=== PATIENT | female | born 1980 | race Hispanic/Latino ===

== ENCOUNTER 2016-10-20 13:50 | Emergency (ER) | payer SELFPAY ==
--- NOTE | 2016-10-20 15:14 | Emergency Department Report ---
Chief Complaint: Psych Stated Complaint: NEEDS HELP WITH DRUG ADDICTION Time Seen by Provider: 10/20/16 15:10 - HPI History of Present Illness: PT states she came to the ED to get treatment for methamphetamine abuse. PT states she has been using heavily for 1 year. - ROS Review of Systems: + bodyaches + nausea - vomiting - Exam Physical Exam: pt looks older than stated age, non toxic pt is alert and appropriate in triage. MSE screening note: Focused history and physical exam performed. Due to findings the following was ordered: labs ED Disposition for MSE Condition: Stable
[2016-10-20 15:51] LABS: Basophils % (Auto) 0.7 % (0.0-1.8); Eosinophils % (Auto) 2.4 % (0.0-4.3); Hematocrit 39.2 % (30.3-42.9); Hemoglobin 12.7 gm/dl (10.1-14.3); Mean Corpuscular HGB Conc 33 % (30-34); Mean Corpuscular Volume 75 fl (79-97); Platelet Count 299 K/mm3 (140-440); Red Cell Distribution Width 16.5 % (13.2-15.2); White Blood Count 11.2 K/mm3 (4.5-11.0)
[2016-10-20 16:02] LABS: Mean Corpuscular Hemoglobin 25 pg (28-32)
[2016-10-20 16:09] LABS: Alanine Aminotransferase 14 units/L (7-56); Albumin 4.1 g/dL (3.9-5); Albumin/Globulin Ratio 1.6 %; Alkaline Phosphatase 64 units/L (35-129); Anion Gap 16 mmol/L; Blood Urea Nitrogen 10 mg/dL (7-17); Calcium 9.2 mg/dL (8.4-10.2); Carbon Dioxide 23 mmol/L (22-30); Glucose 79 mg/dL (65-100); Potassium 4.4 mmol/L (3.6-5.0); Sodium 136 mmol/L (137-145); Total Protein 6.7 g/dL (6.3-8.2)
[2016-10-20 16:17] LABS: Urine Drugs of Abuse Note Disclamer
[2016-10-20 16:28] LABS: Bilirubin,Urine NEG (Negative); Blood,Urine NEG (Negative); Ketones,Urine NEG (Negative); Leukocyte Esterase,Urine SM (Negative); Mucus,Urine FEW /HPF; Nitrite,Urine NEG (Negative); Protein,Urine <15 mg/dL mg/dL (Negative); Urobilinogen,Urine < 2.0 mg/dL (<2.0)
[2016-10-20 17:49] VITALS: BP 122/74
[2016-10-20] MEDS ORDERED: NACL 0.9% 1000 ML 1,000 ML ONE (18:04)
[2016-10-20] MEDS ORDERED: NACL 0.9% 1000 ML 1,000 ML IV ONE (18:11)
[2016-10-20] MEDS ORDERED: ATIVAN IV ONE (19:02)
[2016-10-20] MEDS ORDERED: ZOFRAN IV ONE (19:02)
--- NOTE | 2016-10-20 19:20 | Emergency Department Report ---
ED Psych HPI - General Chief Complaint: Psych Stated Complaint: NEEDS HELP WITH DRUG ADDICTION Time Seen by Provider: 10/20/16 15:10 Source: patient Mode of arrival: Ambulatory - History of Present Illness Initial Comments: 35-year-old female with a past medical history of methamphetamine abuse presents to the hospital requesting detox for methamphetamine. Last used this a.m. Patient complains of generalized body aches and states she is anxious and irritable. Generalized body aches is constant, moderate without aggravating alleviating factors. Positive nausea without vomiting. No reports of suicidal homicidal ideation. - Related Data Previous Rx's Medication Instructions Recorded Last Taken Type HYDROcodone/APAP 5-325 [[place] 1 each PO Q6HR PRN #14 tablet 08/16/13 Unknown Rx 5-325 mg TAB] Penicillin Vk [Veetids TAB] 2 tab PO BID #40 tablet 08/16/13 Unknown Rx Ibuprofen [Motrin] 600 mg PO Q8H PRN #30 tablet 10/20/16 Unknown Rx Ondansetron [Zofran Odt] 4 mg PO Q8HR PRN #20 tab.rapdis 10/20/16 Unknown Rx Allergies Allergy/AdvReac Type Severity Reaction Status Date / Time codeine Allergy Unknown Verified 08/16/13 07:46 ED Review of Systems ROS: Stated complaint: NEEDS HELP WITH DRUG ADDICTION Other details as noted in HPI Comment: All other systems reviewed and negative Other: Constitutional: No fevers chills Eyes: No eye pain visual changes ENT: No ear pain or throat pain Neck: Denies pain Respiratory: Denies cough wheezing shortness of breath Cardiovascular: Denies chest pain, palpitations, syncope GI: Denies abdominal pain, diarrhea : Denies dysuria Musculoskeletal: Generalized Skin: Denies rash, lesions, erythema Neurologic: Denies headache, numbness, weakness Psychiatric: Denies suicidal ideation, hallucinations ED Past Medical Hx - Past Medical History Previous Medical History?: Yes Additional medical history: abuse of drugs, Abuse of Methamphetamines - Surgical History Past Surgical History?: Yes Additional Surgical History: Eye surgery when was a child - Social History Smoking Status: Current Every Day Smoker Substance Use Type: Alcohol, Marijuana, Methamphetamines - Medications Home Medications: Home Medications Medication Instructions Recorded Confirmed Last Taken Type HYDROcodone/APAP 5-325 [[place] 1 each PO Q6HR PRN #14 tablet 04/09/14 Unknown Rx 5-325 mg TAB] Penicillin Vk [Veetids TAB] 2 tab PO BID #40 tablet 08/16/13 Unknown Rx Ibuprofen [Motrin] 600 mg PO Q8H PRN #30 tablet 10/20/16 Unknown Rx Ondansetron [Zofran Odt] 4 mg PO Q8HR PRN #20 tab.rapdis 10/20/16 Unknown Rx ED Physical Exam - General Limitations: No Limitations - Other Other exam information: General: No limitations Head exam: Atraumatic, normocephalic Eyes exam: Normal appearance ENT: Moist mucous membrane, normal oropharynx Neck exam: Normal inspection, full range of motion Respiratory exam: Clear to auscultation bilateral, no wheezes, rales, crackles Cardiovascular: Normal rate and rhythm, normal heart sounds Abdomen: Soft, nondistended, and nontender, with normal bowel sounds, no rebound, or guarding Extremity: Full range of motion normal inspection no deformity Back: Normal Inspection, full range of motion, no tenderness Neurologic: Alert, oriented x3, cranial nerves intact, no motor or sensory deficit Psychiatric: normal affect, normal mood Skin: Warm, dry, intact ED Course Vital Signs 10/20/16 10/20/16 10/20/16 15:10 17:49 18:10 Temperature 98.3 F Pulse Rate 103 H 105 H Respiratory 22 16 16 Rate Blood Pressure 126/83 Blood Pressure 122/74 [Right] O2 Sat by Pulse 100 100 100 Oximetry - Reevaluation(s) Reevaluation #1: 10/20/16 Patient received 1 L normal saline during ED stay with improvement in heart rate. Ativan, Zofran, Toradol also provided prior to discharge ED Medical Decision Making - Lab Data Result diagrams: 10/20/16 15:30 10/20/16 15:30 Lab Results 10/20/16 10/20/16 10/20/16 Range/Units 15:30 15:30 15:30 WBC 11.2 H (4.5-11.0) K/mm3 RBC 5.20 H (3.65-5.03) M/mm3 Hgb 12.7 (10.1-14.3) gm/dl Hct 39.2 (30.3-42.9) % MCV 75 L (79-97) fl MCH 25 L (28-32) pg MCHC 33 (30-34) % RDW 16.5 H (13.2-15.2) % Plt Count 299 (140-440) K/mm3 Lymph % (Auto) 28.7 (13.4-35.0) % [place] % (Auto) 8.4 H (0.0-7.3) % Eos % (Auto) 2.4 (0.0-4.3) % Baso % (Auto) 0.7 (0.0-1.8) % Lymph # 3.2 (1.2-5.4) K/mm3 [place]yler # 0.9 H (0.0-0.8) K/mm3 Eos # 0.3 (0.0-0.4) K/mm3 Baso # 0.1 (0.0-0.1) K/mm3 Seg Neutrophils % 59.8 (40.0-70.0) % Seg Neutrophils # 6.7 (1.8-7.7) K/mm3 Sodium 136 L (137-145) mmol/L Potassium 4.4 (3.6-5.0) mmol/L Chloride 101.0 (98-107) mmol/L Carbon Dioxide 23 (22-30) mmol/L Anion Gap 16 mmol/L BUN 10 (7-17) mg/dL Creatinine 0.5 L (0.7-1.2) mg/dL Estimated GFR > 60 ml/min BUN/Creatinine Ratio 20.00 % Glucose 79 (65-100) mg/dL Calcium 9.2 (8.4-10.2) mg/dL Total Bilirubin 0.20 (0.1-1.2) mg/dL AST 15 (5-40) units/L ALT 14 (7-56) units/L Alkaline Phosphatase 64 (35-129) units/L Total Creatine Kinase (30-135) units/L Total Protein 6.7 (6.3-8.2) g/dL Albumin 4.1 (3.9-5) g/dL Albumin/Globulin Ratio 1.6 % HCG, Qual (Negative) Urine Color (Yellow) Urine Turbidity (Clear) Urine pH (5.0-7.0) Ur Specific [place] (1.003-1.030) Urine Protein (Negative) mg/dL Urine Glucose (UA) (Negative) mg/dL Urine Ketones (Negative) mg/dL Urine Blood (Negative) Urine Nitrite (Negative) Urine Bilirubin (Negative) Urine Urobilinogen (<2.0) mg/dL Ur Leukocyte Esterase (Negative) Urine WBC (Auto) (0.0-6.0) /HPF Urine RBC (Auto) (0.0-6.0) /HPF U Epithel Cells (Auto) (0-13.0) /HPF Urine Mucus /HPF Salicylates < 0.3 L (2.8-20.0) mg/dL Urine Opiates Screen Urine Methadone Screen Acetaminophen (10.0-30.0) ug/mL Ur Barbiturates Screen Ur Phencyclidine Scrn Ur Amphetamines Screen U Benzodiazepines Scrn Urine Cocaine Screen U Marijuana (THC) Screen Drugs of Abuse Note Plasma/Serum Alcohol (0-0.07) gm% 10/20/16 10/20/16 10/20/16 Range/Units 15:30 15:30 15:30 WBC (4.5-11.0) K/mm3 RBC (3.65-5.03) M/mm3 Hgb (10.1-14.3) gm/dl Hct (30.3-42.9) % MCV (79-97) fl MCH (28-32) pg MCHC (30-34) % RDW (13.2-15.2) % Plt Count (140-440) K/mm3 Lymph % (Auto) (13.4-35.0) % [place] % (Auto) (0.0-7.3) % Eos % (Auto) (0.0-4.3) % Baso % (Auto) (0.0-1.8) % Lymph # (1.2-5.4) K/mm3 [place] # (0.0-0.8) K/mm3 Eos # (0.0-0.4) K/mm3 Baso # (0.0-0.1) K/mm3 Seg Neutrophils % (40.0-70.0) % Seg Neutrophils # (1.8-7.7) K/mm3 Sodium (137-145) mmol/L Potassium (3.6-5.0) mmol/L Chloride (98-107) mmol/L Carbon Dioxide (22-30) mmol/L Anion Gap mmol/L BUN (7-17) mg/dL Creatinine (0.7-1.2) mg/dL Estimated GFR ml/min BUN/Creatinine Ratio % Glucose (65-100) mg/dL Calcium (8.4-10.2) mg/dL Total Bilirubin (0.1-1.2) mg/dL AST (5-40) units/L ALT (7-56) units/L Alkaline Phosphatase (35-129) units/L Total Creatine Kinase (30-135) units/L Total Protein (6.3-8.2) g/dL Albumin (3.9-5) g/dL Albumin/Globulin Ratio % HCG, Qual Negative (Negative) Urine Color (Yellow) Urine Turbidity (Clear) Urine pH (5.0-7.0) Ur Specific [place] (1.003-1.030) Urine Protein (Negative) mg/dL Urine Glucose (UA) (Negative) mg/dL Urine Ketones (Negative) mg/dL Urine Blood (Negative) Urine Nitrite (Negative) Urine Bilirubin (Negative) Urine Urobilinogen (<2.0) mg/dL Ur Leukocyte Esterase (Negative) Urine WBC (Auto) (0.0-6.0) /HPF Urine RBC (Auto) (0.0-6.0) /HPF U Epithel Cells (Auto) (0-13.0) /HPF Urine Mucus /HPF Salicylates (2.8-20.0) mg/dL Urine Opiates Screen Urine Methadone Screen Acetaminophen < 15.0 (10.0-30.0) ug/mL Ur Barbiturates Screen Ur Phencyclidine Scrn Ur Amphetamines Screen U Benzodiazepines Scrn Urine Cocaine Screen U Marijuana (THC) Screen Drugs of Abuse Note Plasma/Serum Alcohol < 0.01 (0-0.07) gm% 10/20/16 10/20/16 10/20/16 Range/Units 16:12 16:12 17:40 WBC (4.5-11.0) K/mm3 RBC (3.65-5.03) M/mm3 Hgb (10.1-14.3) gm/dl Hct (30.3-42.9) % MCV (79-97) fl MCH (28-32) pg MCHC (30-34) % RDW (13.2-15.2) % Plt Count (140-440) K/mm3 Lymph % (Auto) (13.4-35.0) % [place] % (Auto) (0.0-7.3) % Eos % (Auto) (0.0-4.3) % Baso % (Auto) (0.0-1.8) % Lymph # (1.2-5.4) K/mm3 [place] # (0.0-0.8) K/mm3 Eos # (0.0-0.4) K/mm3 Baso # (0.0-0.1) K/mm3 Seg Neutrophils % (40.0-70.0) % Seg Neutrophils # (1.8-7.7) K/mm3 Sodium (137-145) mmol/L Potassium (3.6-5.0) mmol/L Chloride (98-107) mmol/L Carbon Dioxide (22-30) mmol/L Anion Gap mmol/L BUN (7-17) mg/dL Creatinine (0.7-1.2) mg/dL Estimated GFR ml/min BUN/Creatinine Ratio % Glucose (65-100) mg/dL Calcium (8.4-10.2) mg/dL Total Bilirubin (0.1-1.2) mg/dL AST (5-40) units/L ALT (7-56) units/L Alkaline Phosphatase (35-129) units/L Total Creatine Kinase 94 (30-135) units/L Total Protein (6.3-8.2) g/dL Albumin (3.9-5) g/dL Albumin/Globulin Ratio % HCG, Qual (Negative) Urine Color Yellow (Yellow) Urine Turbidity Clear (Clear) Urine pH 5.0 (5.0-7.0) Ur Specific [place] 1.026 (1.003-1.030) Urine Protein <15 mg/dl (Negative) mg/dL Urine Glucose (UA) Neg (Negative) mg/dL Urine Ketones Neg (Negative) mg/dL Urine Blood Neg (Negative) Urine Nitrite Neg (Negative) Urine Bilirubin Neg (Negative) Urine Urobilinogen < 2.0 (<2.0) mg/dL Ur Leukocyte Esterase Sm (Negative) Urine WBC (Auto) 1.0 (0.0-6.0) /HPF Urine RBC (Auto) 4.0 (0.0-6.0) /HPF U Epithel Cells (Auto) < 1.0 (0-13.0) /HPF Urine Mucus Few /HPF Salicylates (2.8-20.0) mg/dL Urine Opiates Screen Presumptive negative Urine Methadone Screen Presumptive negative Acetaminophen (10.0-30.0) ug/mL Ur Barbiturates Screen Presumptive positive Ur Phencyclidine Scrn Presumptive negative Ur Amphetamines Screen Presumptive positive U Benzodiazepines Scrn Presumptive negative Urine Cocaine Screen Presumptive negative U Marijuana (THC) Screen Presumptive positive Drugs of Abuse Note Disclamer Plasma/Serum Alcohol (0-0.07) gm% - Medical Decision Making Patient's heart rate improved with 1 L normal saline. Patient provided 1 dose of Ativan and Zofran due to complaints of body aches, feeling anxious, and nausea. Mental health spoke to the patient to reiterate that we do not offer inpatient treatment for amphetamine abuse. Patient will be given outpatient resources and medication for nausea. - Differential Diagnosis substance abuse, rhabdomyolysis, amphetamine withdrawal, dehydration Critical care attestation.: If time is entered above; I have spent that time in minutes in the direct care of this critically ill patient, excluding procedure time. ED Disposition Clinical Impression: Amphetamine abuse Disposition: DC-01 TO HOME OR SELFCARE Is pt being admited?: No Does the pt Need Aspirin: No Condition: Stable Instructions: Methamphetamine Abuse (ED) Additional Instructions: Take medications for nausea and vomiting. Follow-up with the psychiatric center provided. Prescriptions: Ibuprofen [Motrin] 600 mg PO Q8H PRN #30 tablet PRN Reason: Pain Ondansetron [Zofran Odt] 4 mg PO Q8HR PRN #20 tab.rapdis PRN Reason: Nausea And Vomiting [facility] Days Forms: Accompanied Note Time of Disposition: 19:20
[2016-10-20] MEDS ORDERED: TORADOL IV ONE (19:22)
== END 2016-10-20 19:51 | disposition home or self-care (01) ==
LOC: ED 13:50
DX: F15.10 Other stimulant abuse, uncomplicated (principal); F17.200 Nicotine dependence, unspecified, uncomplicated; F12.90 Cannabis use, unspecified, uncomplicated; Z88.5 Allergy status to narcotic agent
CPT/HCPCS: 36415; 80053; 80307; 81001; 82550; 84703; 85025; 96361; 96374; 96375; 99283; G0480; J1885; J2060; J2405; J7030; 80320

== ENCOUNTER 2019-02-14 20:16 | Emergency (ER) | payer OTHER ==
[2019-02-14] MEDS ORDERED: ONDANSETRON 4 MG/2 ML INJ ONE (20:33)
[2019-02-14] MEDS ORDERED: MORPHINE 4 MG/1 ML INJ ONE (20:33)
[2019-02-14] MEDS ORDERED: BUPIVACAINE/PF (0.25%) 2.5 MG/ML 30 ML VIAL INFILTRATI ONE (21:00)
--- NOTE | 2019-02-14 21:20 | XRay Report ---
RIGHT WRIST 2 VIEWS INDICATION / CLINICAL INFORMATION: pain/injury. COMPARISON: None available. FINDINGS: Comminuted, very significantly displaced distal radial fracture. Signer Name: Mike Krishnamurthy MD Signed: 02/14/2019 9:16 PM Workstation Name: [id number]
[2019-02-14] MEDS ORDERED: SODIUM CHLORIDE 0.9% 1000 ML 1,000 ML IV ONE (21:30)
[2019-02-14] MEDS ORDERED: ONDANSETRON 4 MG/2 ML INJ IV ONE ×2 (21:30→23:01)
[2019-02-14] MEDS ORDERED: PROPOFOL 200 MG/20 ML VIAL IV ONE (21:30)
[2019-02-14] MEDS ORDERED: MORPHINE 4 MG/1 ML INJ IV ONE ×2 (21:35→23:01)
[2019-02-14 23:01] VITALS: BP 138/94
--- NOTE | 2019-02-14 23:11 | Emergency Department Report ---
ED General Adult HPI - General Chief complaint: Fall Stated complaint: RIGHT ARM PAIN Time Seen by Provider: 02/14/19 20:31 Source: patient, EMS Mode of arrival: Ambulatory Limitations: No Limitations - History of Present Illness Initial comments: Patient presents to the emergency department with a right wrist injury. Patient states she was walking with her dog and tripped over her dog landing onto her right wrist. Patient denies hitting her head or loss of consciousness -: Sudden Location: upper extremity Severity scale (0 -10): 5 Quality: sharp Consistency: constant Improves with: rest Worsens with: movement Associated Symptoms: denies other symptoms Treatments Prior to Arrival: none - Related Data Previous Rx's Medication Instructions Recorded Last Taken Type HYDROcodone/APAP 5-325 [[place] 1 each PO Q6HR PRN #14 tablet 08/16/13 Unknown Rx 5-325 mg TAB] Penicillin Vk [Veetids TAB] 2 tab PO BID #40 tablet 08/16/13 Unknown Rx Ibuprofen [Motrin] 600 mg PO Q8H PRN #30 tablet 10/20/16 Unknown Rx Ondansetron [Zofran Odt] 4 mg PO Q8HR PRN #20 tab.rapdis 10/20/16 Unknown Rx Ondansetron [Zofran Odt] 4 mg PO Q4HR PRN #20 tab.rapdis 02/14/19 Unknown Rx Allergies Allergy/AdvReac Type Severity Reaction Status Date / Time codeine Allergy Unknown Verified 08/16/13 07:46 ED Review of Systems ROS: Stated complaint: RIGHT ARM PAIN Other details as noted in HPI Constitutional: denies: chills, fever Eyes: denies: eye pain, eye discharge, vision change ENT: denies: ear pain, throat pain Respiratory: denies: cough, shortness of breath, wheezing Cardiovascular: denies: chest pain, palpitations Endocrine: no symptoms reported Gastrointestinal: denies: abdominal pain, nausea, diarrhea Genitourinary: denies: urgency, dysuria, discharge Musculoskeletal: denies: back pain, joint swelling, arthralgia Skin: denies: rash, lesions Neurological: denies: headache, weakness, paresthesias Psychiatric: denies: anxiety, depression Hematological/Lymphatic: denies: easy bleeding, easy bruising ED Past Medical Hx - Past Medical History Previous Medical History?: Yes Hx Hypertension: Yes Additional medical history: abuse of drugs, Abuse of Methamphetamines - Surgical History Additional Surgical History: Eye surgery when was a child - Social History Smoking Status: Current Every Day Smoker Substance Use Type: Alcohol - Medications Home Medications: Home Medications Medication Instructions Recorded Confirmed Last Taken Type HYDROcodone/APAP 5-325 [[place] 1 each PO Q6HR PRN #14 tablet 08/16/13 Unknown Rx 5-325 mg TAB] Penicillin Vk [Veetids TAB] 2 tab PO BID #40 tablet 08/16/13 Unknown Rx Ibuprofen [Motrin] 600 mg PO Q8H PRN #30 tablet 10/20/16 Unknown Rx Ondansetron [Zofran Odt] 4 mg PO Q8HR PRN #20 tab.rapdis 10/20/16 Unknown Rx Ondansetron [Zofran Odt] 4 mg PO Q4HR PRN #20 tab.rapdis 02/14/19 Unknown Rx ED Physical Exam - General Limitations: No Limitations General appearance: alert, in no apparent distress - Head Head exam: Present: atraumatic, normocephalic - Eye Eye exam: Present: normal appearance, PERRL, EOMI - ENT ENT exam: Present: mucous membranes moist - Neck Neck exam: Present: normal inspection - Respiratory Respiratory exam: Present: normal lung sounds bilaterally. Absent: respiratory distress - Cardiovascular Cardiovascular Exam: Present: regular rate, normal rhythm. Absent: systolic murmur, diastolic murmur, rubs, gallop - GI/Abdominal GI/Abdominal exam: Present: soft, normal bowel sounds - Extremities Exam Extremities exam: Present: other (deformity of the right wrist) - Back Exam Back exam: Present: normal inspection - Neurological Exam Neurological exam: Present: alert, oriented X3 - Psychiatric Psychiatric exam: Present: normal affect, normal mood - Skin Skin exam: Present: warm, dry, intact, normal color. Absent: rash ED Course Vital Signs 02/14/19 02/14/19 02/14/19 15:30 20:21 20:24 Temperature 98.2 F Temperature [ Intra-Procedure ] Temperature [ Post-Procedure] Temperature [ Pre-Procedure] Pulse Rate 109 H 95 H Pulse Rate [ Intra-Procedure ] Pulse Rate [ Post-Procedure] Pulse Rate [Pre -Procedure] Respiratory 17 22 Rate Respiratory Rate [Intra- Procedure] Respiratory Rate [Post- Procedure] Respiratory Rate [Pre- Procedure] Blood Pressure 120/59 120/59 120/59 Blood Pressure [Intra- Procedure] Blood Pressure 120/59 [Left] Blood Pressure [Post-Procedure ] Blood Pressure [Pre-Procedure] O2 Sat by Pulse 99 Oximetry O2 Sat by Pulse Oximetry [ Intra-Procedure ] O2 Sat by Pulse Oximetry [Post -Procedure] O2 Sat by Pulse Oximetry [Pre- Procedure] 02/14/19 02/14/19 02/14/19 20:30 20:46 21:00 Temperature Temperature [ Intra-Procedure ] Temperature [ Post-Procedure] Temperature [ Pre-Procedure] Pulse Rate 109 H 99 H 98 H Pulse Rate [ Intra-Procedure ] Pulse Rate [ Post-Procedure] Pulse Rate [Pre -Procedure] Respiratory 21 14 20 Rate Respiratory Rate [Intra- Procedure] Respiratory Rate [Post- Procedure] Respiratory Rate [Pre- Procedure] Blood Pressure 120/59 120/59 120/59 Blood Pressure [Intra- Procedure] Blood Pressure [Left] Blood Pressure [Post-Procedure ] Blood Pressure [Pre-Procedure] O2 Sat by Pulse 99 Oximetry O2 Sat by Pulse Oximetry [ Intra-Procedure ] O2 Sat by Pulse Oximetry [Post -Procedure] O2 Sat by Pulse Oximetry [Pre- Procedure] 02/14/19 02/14/19 02/14/19 21:16 21:30 21:31 Temperature Temperature [ Intra-Procedure ] Temperature [ Post-Procedure] Temperature [ Pre-Procedure] Pulse Rate 98 H 97 H Pulse Rate [ Intra-Procedure ] Pulse Rate [ Post-Procedure] Pulse Rate [Pre -Procedure] Respiratory 20 21 19 Rate Respiratory Rate [Intra- Procedure] Respiratory Rate [Post- Procedure] Respiratory Rate [Pre- Procedure] Blood Pressure 120/59 120/59 Blood Pressure [Intra- Procedure] Blood Pressure [Left] Blood Pressure [Post-Procedure ] Blood Pressure [Pre-Procedure] O2 Sat by Pulse Oximetry O2 Sat by Pulse Oximetry [ Intra-Procedure ] O2 Sat by Pulse Oximetry [Post -Procedure] O2 Sat by Pulse Oximetry [Pre- Procedure] 02/14/19 02/14/19 02/14/19 21:46 22:00 22:15 Temperature Temperature [ Intra-Procedure ] Temperature [ Post-Procedure] Temperature [ Pre-Procedure] Pulse Rate 86 87 95 H Pulse Rate [ Intra-Procedure ] Pulse Rate [ Post-Procedure] Pulse Rate [Pre -Procedure] Respiratory 22 26 H 15 Rate Respiratory Rate [Intra- Procedure] Respiratory Rate [Post- Procedure] Respiratory Rate [Pre- Procedure] Blood Pressure 121/83 121/83 126/89 Blood Pressure [Intra- Procedure] Blood Pressure [Left] Blood Pressure [Post-Procedure ] Blood Pressure [Pre-Procedure] O2 Sat by Pulse 99 100 100 Oximetry O2 Sat by Pulse Oximetry [ Intra-Procedure ] O2 Sat by Pulse Oximetry [Post -Procedure] O2 Sat by Pulse Oximetry [Pre- Procedure] 02/14/19 02/14/19 02/14/19 22:30 22:45 22:56 Temperature Temperature [ 98.7 F Intra-Procedure ] Temperature [ 98.7 F Post-Procedure] Temperature [ 98.7 F Pre-Procedure] Pulse Rate 88 101 H Pulse Rate [ 92 H Intra-Procedure ] Pulse Rate [ 96 H Post-Procedure] Pulse Rate [Pre 91 H -Procedure] Respiratory 15 12 Rate Respiratory 27 H Rate [Intra- Procedure] Respiratory 21 Rate [Post- Procedure] Respiratory 22 Rate [Pre- Procedure] Blood Pressure 134/84 126/83 Blood Pressure 130/89 [Intra- Procedure] Blood Pressure [Left] Blood Pressure 136/82 [Post-Procedure ] Blood Pressure 120/79 [Pre-Procedure] O2 Sat by Pulse 100 100 Oximetry O2 Sat by Pulse 100 Oximetry [ Intra-Procedure ] O2 Sat by Pulse 100 Oximetry [Post -Procedure] O2 Sat by Pulse 100 Oximetry [Pre- Procedure] 02/14/19 23:00 Temperature Temperature [ Intra-Procedure ] Temperature [ Post-Procedure] Temperature [ Pre-Procedure] Pulse Rate 100 H Pulse Rate [ Intra-Procedure ] Pulse Rate [ Post-Procedure] Pulse Rate [Pre -Procedure] Respiratory 18 Rate Respiratory Rate [Intra- Procedure] Respiratory Rate [Post- Procedure] Respiratory Rate [Pre- Procedure] Blood Pressure 138/94 Blood Pressure [Intra- Procedure] Blood Pressure [Left] Blood Pressure [Post-Procedure ] Blood Pressure [Pre-Procedure] O2 Sat by Pulse 99 Oximetry O2 Sat by Pulse Oximetry [ Intra-Procedure ] O2 Sat by Pulse Oximetry [Post -Procedure] O2 Sat by Pulse Oximetry [Pre- Procedure] - Orthopedic Fracture Reduction Fracture #1 Consent Obtained: verbal consent, written consent Time Out Performed: Yes Side: right Fracture Reduction Location: radius Analgesia: moderate sedation, hematoma block Technique: direct manipulation, traction/counter-traction Post Reduction X-rays Demonstrate: anatomical reduction Post-Reduction Neuro Exam: intact Post-Reduction Vascular Exam: intact Splint Applied: Yes Patient Tolerated Procedure: well ED Medical Decision Making - Radiology Data Radiology results: report reviewed Critical care attestation.: If time is entered above; I have spent that time in minutes in the direct care of this critically ill patient, excluding procedure time. ED Disposition Clinical Impression: Radius distal fracture Disposition: TO HOME OR SELFCARE Is pt being admited?: No Does the pt Need Aspirin: No Condition: Stable Instructions: Arm Fracture in Adults (ED), Moderate Sedation (ED) Additional Instructions: return if worse or if there is numbness or increased pain Referrals: PRIMARY CAREMD [Primary Care Provider] - 3-5 Days GEE BERUMEN MD [Staff Physician] - 3-5 Days Time of Disposition: 23:15
--- NOTE | 2019-02-14 23:40 | XRay Report ---
RIGHT FOREARM 2 VIEW(S) INDICATION / CLINICAL INFORMATION: post reduction fracture COMPARISON: Wrist radiograph from earlier the same day FINDINGS: A splint obscures bone and soft tissue detail. Alignment of the comminuted distal radius fracture is improved following closed reduction, with slight residual dorsal and lateral displacement of the dist al fragment. There is minimal volar tilt of the articular surface of the distal radius. Signer Name: Anup Vargas MD Signed: 02/14/2019 11:36 PM Workstation Name: [id number]
[2019-02-14] MEDS ORDERED: ACETAMINOPHEN 325 MG TAB PO ONE (23:43)
== END 2019-02-14 23:58 | disposition home or self-care (01) ==
LOC: ED 20:16
DX: S52.501A Unspecified fracture of the lower end of right radius, initial encounter for closed fracture (principal); W19.XXXA Unspecified fall, initial encounter; Y93.89 Activity, other specified; Y92.89 Other specified places as the place of occurrence of the external cause; Y99.8 Other external cause status
CPT/HCPCS: 23575; 36415; 73090; 73100; 96374; 96375; 99284; J2270; J2405; J2704; J7030; 80320; G0480

== ENCOUNTER 2019-02-16 16:42 | Emergency (ER) | payer OTHER ==
[2019-02-16] MEDS ORDERED: HYDROcodone/ACETAMINOPHEN 7.5-325MG TAB PO ONE (16:57)
[2019-02-16] MEDS ORDERED: IBUPROFEN 600 MG TAB PO ONE (16:57)
[2019-02-16 17:01] VITALS: BP 145/94
--- NOTE | 2019-02-16 17:06 | Event Note ---
ED Screening Note Date of service: 02/16/19 Time: 17:04 ED Screening Note: 38 y/o female comes in for wosening pain and swelling of her right wrist. Patient has a comminuted distal radial fx. This initial assessment/diagnostic orders/clinical plan/treatment(s) is/are subject to change based on patients health status, clinical progression and re- assessment by fellow clinical providers in the ED. Further treatment and workup at subsequent clinical providers discretion. Patient/guardian urged not to elope from the ED as their condition may be serious if not clinically assessed and managed. Initial orders include:
--- NOTE | 2019-02-16 18:44 | Emergency Department Report ---
ED Upper Extremity Inj HPI - General Chief Complaint: Extremity Problem,Nontraumatic Stated Complaint: RT HAND SWELLING Time Seen by Provider: 02/16/19 16:55 Source: patient Mode of arrival: Ambulatory Limitations: No Limitations - History of Present Illness Initial Comments: This is a 38-year-old female who presents to the emergency room with swelling and pain to right wrist. Patient states she broke her right wrist Wednesday night and was diagnosed with a fracture. Patient states splint was applied and she noticed increased swelling today. Patient reports pain from third through fifth fingers with attempted movement. Patient states she had a scheduled appointment with orthopedic surgeon next Wednesday. She also reports a numbness and tingling in right fingers third through fifth. MD Complaint: Injury to:: right, wrist Onset/Timin -: days(s) Other Extremity Injury: Wrist: Right (swelling and pain) Other Injuries: none Handedness: right Place: outdoors Severity scale (0 -10): 10 Improves With: none Worsens With: movement of extremity Context: fall Associated Symptoms: numbness Treatments Prior to Arrival: splint - Related Data Previous Rx's Medication Instructions Recorded Last Taken Type HYDROcodone/APAP 5-325 [[place] 1 each PO Q6HR PRN #14 tablet 08/16/13 Unknown Rx 5-325 mg TAB] Penicillin Vk [Veetids TAB] 2 tab PO BID #40 tablet 08/16/13 Unknown Rx Ibuprofen [Motrin] 600 mg PO Q8H PRN #30 tablet 10/20/16 Unknown Rx Ondansetron [Zofran Odt] 4 mg PO Q8HR PRN #20 tab.rapdis 10/20/16 Unknown Rx HYDROcodone/APAP 10-325 [[place] 1 each PO Q6HR PRN #20 tablet 02/14/19 Unknown Rx 10/325] Ondansetron [Zofran Odt] 4 mg PO Q4HR PRN #20 tab.rapdis 02/14/19 Unknown Rx Allergies Allergy/AdvReac Type Severity Reaction Status Date / Time codeine Allergy Unknown Verified 08/16/13 07:46 ED Review of Systems ROS: Stated complaint: RT HAND SWELLING Other details as noted in HPI Constitutional: denies: chills, fever Respiratory: denies: cough, shortness of breath, wheezing Cardiovascular: denies: chest pain, palpitations Gastrointestinal: denies: abdominal pain, nausea, diarrhea Musculoskeletal: joint swelling (right wrist), arthralgia (right wrist). denies: back pain Skin: denies: rash, lesions Neurological: denies: headache, weakness, paresthesias Psychiatric: denies: anxiety, depression ED Past Medical Hx - Past Medical History Previous Medical History?: Yes Hx Hypertension: Yes Additional medical history: abuse of drugs, Abuse of Methamphetamines - Surgical History Past Surgical History?: Yes Additional Surgical History: Eye surgery when was a child - Social History Smoking Status: Current Every Day Smoker Substance Use Type: Alcohol, Marijuana - Medications Home Medications: Home Medications Medication Instructions Recorded Confirmed Last Taken Type HYDROcodone/APAP 5-325 [[place] 1 each PO Q6HR PRN #14 tablet 08/16/13 Unknown Rx 5-325 mg TAB] Penicillin Vk [Veetids TAB] 2 tab PO BID #40 tablet 08/16/13 Unknown Rx Ibuprofen [Motrin] 600 mg PO Q8H PRN #30 tablet 10/20/16 Unknown Rx Ondansetron [Zofran Odt] 4 mg PO Q8HR PRN #20 tab.rapdis 10/20/16 Unknown Rx HYDROcodone/APAP 10-325 [[place] 1 each PO Q6HR PRN #20 tablet 02/14/19 Unknown Rx 10/325] Ondansetron [Zofran Odt] 4 mg PO Q4HR PRN #20 tab.rapdis 02/14/19 Unknown Rx ED Physical Exam - General Limitations: No Limitations General appearance: alert, in no apparent distress - Respiratory Respiratory exam: Present: normal lung sounds bilaterally. Absent: respiratory distress - Cardiovascular Cardiovascular Exam: Present: regular rate, normal rhythm. Absent: systolic murmur, diastolic murmur, rubs, gallop - GI/Abdominal GI/Abdominal exam: Present: soft, normal bowel sounds - Expanded Upper Extremity Exam Right Shoulder Exam: Present: normal inspection, full ROM Upper Arm exam: Present: normal inspection, full ROM Elbow exam: Present: normal inspection, full ROM Hand Wrist exam: Present: tenderness, swelling. Absent: full ROM (limited ROM 2/2 pain), abrasion, laceration, ecchymosis, deformity, crepidus, dislocation, erythema, amputation, nail avulsion, subungual hematoma Neuro motor exam: Present: thumb opposition intact, thumb IP flexion intact, thumb adduction intact, fingers 2-5 abduction intact. Absent: wrist extension intact Neurosensory exam: Present: radial nerve intact, ulnar nerve intact, median nerve intact Vascular: Present: normal capillary refill, radial pulse - Neurological Exam Neurological exam: Present: alert, oriented X3 - Expanded Neurological Exam Expanded Patient oriented to: Present: person, place, time Speech: Present: fluid speech Sensory exam: Upper Extremity Light Touch: Normal, Upper Extremity Pin Prick: Normal, Upper Extremity Temperature: Normal, UE 2 Point Discrimination: Normal Motor strength exam: RUE: 4, RLE: 5 Best Eye Response (Pimento): (4) open spontaneously Best Motor Response (Pimento): (6) obeys commands Best Verbal Response (Janis): (5) oriented Janis Total: 15 - Psychiatric Psychiatric exam: Present: normal affect, normal mood - Skin Skin exam: Present: warm, dry, intact, normal color. Absent: rash ED Course Vital Signs 02/16/19 02/16/19 02/16/19 16:58 17:22 17:31 Temperature 98.0 F Pulse Rate 111 H 88 93 H Respiratory 18 24 19 Rate Blood Pressure 145/94 O2 Sat by Pulse 95 99 100 Oximetry 02/16/19 02/16/19 02/16/19 17:45 17:54 18:01 Temperature Pulse Rate 95 H 97 H Respiratory 23 19 20 Rate Blood Pressure O2 Sat by Pulse 100 99 100 Oximetry 02/16/19 02/16/19 02/16/19 18:15 18:31 18:45 Temperature Pulse Rate 111 H 92 H 88 Respiratory 22 26 H 15 Rate Blood Pressure O2 Sat by Pulse 98 100 100 Oximetry ED Medical Decision Making - Radiology Data Radiology results: report reviewed Right wrist 3 views INDICATION: Right wrist pain following injury IMPRESSION: Comminuted intra-articular fracture identified through the distal radius. Small avulsion fracture noted off the ulnar styloid process. Severe swelling along the dorsal wrist. - Medical Decision Making Patient was examined by me. Patient is nontoxic appearing and stable. Vitals are normal. Obtained x-ray of right wrist with no change in findings 2 days ago. Comminuted intra-articular fracture identified through the distal radius. Small avulsion fracture noted off the ulnar styloid process. Severe swelling along the dorsal wrist. Given analgesics while in the ER. There is swelling along dorsal wrist, negative pallor, tender, negative firm with palpation, and < 2 capillary refill. A reverse sugar tong splint applied to RUE. Instructed to take Tylenol or ibuprofen for pain. Follow up with PCP or return to the ER with worsening symptoms. Patient discharged home in stable condition. Critical care attestation.: If time is entered above; I have spent that time in minutes in the direct care of this critically ill patient, excluding procedure time. ED Disposition Clinical Impression: Radius distal fracture Qualifiers: Encounter type: subsequent encounter Fracture type: closed Fracture morphology: unspecified fracture morphology Laterality: right Fracture healing: with delayed healing Qualified Code(s): S52.501G - Unspecified fracture of the lower end of right radius, subsequent encounter for closed fracture with delayed healing Disposition: TO HOME OR SELFCARE Is pt being admited?: No Does the pt Need Aspirin: No Condition: Stable Instructions: Wrist Fracture in Adults (ED) Additional Instructions: Follow-up with orthopedic surgeons from the referral list below. With wetting splint. Return to the emergency room if worsening swelling, pain, numbness, or change in skin color. Referrals: GEE BERUMEN MD [Staff Physician] - 3-5 Days [facility] [Provider Group] - 3-[address] [facility] [Provider Group] - 3-5 Days Time of Disposition: 20:32
--- NOTE | 2019-02-16 19:56 | XRay Report ---
Right wrist 3 views INDICATION: Right wrist pain following injury IMPRESSION: Comminuted intra-articular fracture identified through the distal radius. Small avulsion fracture noted off the ulnar styloid process. Severe swelling along the dorsal wrist. Signer Name: Isaiah Leon MD Signed: 02/16/2019 7:52 PM Workstation Name: [id number]
== END 2019-02-16 21:27 | disposition home or self-care (01) ==
LOC: ED 16:42
DX: S52.501G Unspecified fracture of the lower end of right radius, subsequent encounter for closed fracture with delayed healing (principal); I10 Essential (primary) hypertension; F17.200 Nicotine dependence, unspecified, uncomplicated; Z88.5 Allergy status to narcotic agent; Z79.899 Other long term (current) drug therapy; W01.198A Fall on same level from slipping, tripping and stumbling with subsequent striking against other object, initial encounter; Y93.89 Activity, other specified; Y92.89 Other specified places as the place of occurrence of the external cause; Y99.8 Other external cause status

== ENCOUNTER 2019-02-23 10:38 | Day surgery (SDC) | payer OTHER ==
[2019-02-23] MEDS ORDERED: BACTERIOSTATIC SODIUM CHLORIDE 0.9% 30 ML VIAL INFILTRATI ONE (11:18)
[2019-02-23] MEDS ORDERED: LACTATED RINGERS 1,000 ML ONE ×3 (11:18→17:26)
--- NOTE | 2019-02-23 11:39 | Anesthesia Consultation ---
Anesthesia Consult and Med Hx Date of service: 02/23/19 - Airway Anesthetic Teeth Evaluation: Poor, Chipped (decayed and broken) ROM Head & Neck: Adequate Mental/Hyoid Distance: Adequate Mallampati Class: Class II Intubation Access Assessment: Good - Pulmonary Exam CTA: Yes - Cardiac Exam Cardiac Exam: RRR - Pre-Operative Health Status ASA Pre-Surgery Classification: ASA2 Proposed Anesthetic Plan: General - Pulmonary Hx Smoking: Yes (1 PPD X 10 YRS) Hx Sleep Apnea: No (ARSENIO PRE SCREEN NEGATIVE) - Cardiovascular System Hx Hypertension: No - Central Nervous System Hx Back Pain: Yes - Other Systems Hx Substance Use: Yes (HX METHAMPHETAMINE ABUSE , MARIJUANA USE) Hx Cancer: No
[2019-02-23] MEDS ORDERED: ONDANSETRON 4 MG/2 ML INJ IV PRN (11:40)
[2019-02-23] MEDS ORDERED: fentaNYL 100 MCG/2 ML INJ IV PRN (11:40)
--- NOTE | 2019-02-23 11:40 | Anesthesia Day of Surgery ---
Anesthesia Day of Surgery - Day of Surgery Patient Examined: Yes Patient H&P Reviewed: Yes Patient is NPO: Yes
[2019-02-23] MEDS ORDERED: LACTATED RINGERS 1,000 ML IV SCH (12:18)
[2019-02-23] MEDS ORDERED: fentaNYL 100 MCG/2 ML INJ IV ONE (12:38)
[2019-02-23] MEDS ORDERED: MIDAZOLAM 2 MG/2 ML INJ IV ONE ×2 (12:38→18:37)
[2019-02-23] MEDS ORDERED: fentaNYL 100 MCG/2 ML INJ ONE ×2 (14:07→15:57)
[2019-02-23] MEDS ORDERED: BUPIVACAINE-EPINEPHRINE/PF 0.5%-1:200,000 (30 ML) VIAL INFILTRATI ONE (14:08)
[2019-02-23] MEDS ORDERED: MIDAZOLAM 2 MG/2 ML INJ ONE ×2 (14:08→18:37)
[2019-02-23] MEDS ORDERED: BUPIVACAINE/PF (0.25%) 2.5 MG/ML 30 ML VIAL INFILTRATI ONE (14:28)
[2019-02-23] MEDS ORDERED: VANCOMYCIN/NS 1 GM/250 ML 1 GM/250 ML BAG IV NR (15:44)
[2019-02-23] MEDS ORDERED: LIDOCAINE MPF (2%) 20 MG/1 ML VIAL 5 ML ONE (15:58)
[2019-02-23] MEDS ORDERED: PROPOFOL 200 MG/20 ML VIAL IV ONE (15:58)
[2019-02-23] MEDS ORDERED: dexAMETHasone 20 MG/5 ML VIAL ONE (17:06)
[2019-02-23] MEDS ORDERED: ONDANSETRON 4 MG/2 ML INJ ONE (17:07)
[2019-02-23] MEDS ORDERED: KETOROLAC 30 MG/1 ML INJ ONE (17:07)
--- NOTE | 2019-02-23 17:24 | Procedure Note ---
Date of procedure: 02/23/19 Pre-op diagnosis: displaced right distal radius fracture Post-op diagnosis: same Procedure: Open reduction internal fixation right distal radius Procedure The patient was brought to the OR placed in the OR table in supine position following induction and intubation by anesthesia the patient's right upper extremity was prepped and draped in the usual sterile manner A timeout procedure was done to identify the patient and the correct operative site. The arm was exsanguinated followed by inflation of the pneumatic tourniquet to 250 mmHg. A volar incision was made along the distal radius as is taken down sharply through skin and subcutaneous the flexor carpi radialis tendon was seen next the incision was carried deep to this structure we encountered the quadratus tendon this was then debrided from the distal radius using a periosteal elevator the fracture site was seen she was noted to have a small comminuted fragment along the volar surface after the gentle manipulation the fracture fragments were reduced into a more anatomic position next the right distal radius locking plate was applied via C-arm care was taken to insert both locking and nonlocking screws of various lengths AP and lateral views were obtained showing good redu ction at the fracture and in placement of our hardware the wrist was taken through a range of motion and was found to be stable next the wound was copiously irrigated and was closed in a standard routine fashion. Dressings were applied as well as a well-padded volar splint the patient tolerated the procedure there were no complications and she was sent to postanesthesia recovery in a stable condition Anesthesia: GILDARDO Surgeon: GEE BERUMEN Seed Packer: FLIP BALDERAS Estimated blood loss: minimal Pathology: none Condition: stable Disposition: PACU
--- NOTE | 2019-02-23 17:28 | XRay Report ---
RIGHT WRIST 2 VIEWS INDICATION / CLINICAL INFORMATION: RT RADIUS FX/ORIF RT WRIST. COMPARISON: Preop study of 02/16/2019 FINDINGS: AP and lateral views made in the OR show ORIF of the comminuted distal radial fracture. Alignment elizabet ears near-anatomic. Signer Name: Mike Krishnamurthy MD Signed: 02/23/2019 5:24 PM Workstation Name: [id number]
[2019-02-23] MEDS ORDERED: HYDROmorphone 1 MG/1 ML INJ ONE (17:41)
[2019-02-23] MEDS: HYDROmorphone 1 MG/1 ML INJ IV PRN ×2 (17:45→18:15)
[2019-02-23] MEDS ORDERED: oxyCODONE /ACETAMINOPHEN 5-325MG TAB ONE (18:10)
[2019-02-23] MEDS ORDERED: oxyCODONE /ACETAMINOPHEN 5-325MG TAB PO PRN (18:11)
[2019-02-23] MEDS ORDERED: oxyCODONE /ACETAMINOPHEN 5-325MG TAB PO ONE (18:18)
--- NOTE | 2019-02-23 18:28 | Post Anesthesia Evaluation ---
- Post Anesthesia Evaluation Patient Participated: Yes Airway Patent: Yes Stable Respiratory Function: Yes Nausea/Vomiting: No Temp > 96.8F: Yes Pain Manageable: Yes Adequeate Hydration: Yes Anesthesia Complications: No Block Receding Appropriately: Not Applicable Patient on Ventilator: No
[2019-02-23] MEDS ORDERED: MEPERIDINE 25 MG/1 ML INJ ONE (18:37)
[2019-02-23] MEDS ORDERED: MEPERIDINE 25 MG/1 ML INJ IV PRN (18:38)
[2019-02-23] MEDS ORDERED: ACETAMINOPHEN 500 MG TAB PO ONE (18:39)
[2019-02-23 19:54] VITALS: BP 150/66
== END 2019-02-23 19:55 | disposition home or self-care (01) ==
LOC: OR 10:38
PROVIDERS: ATTEND Orthopaedic Surgery
DX: S52.571A Other intraarticular fracture of lower end of right radius, initial encounter for closed fracture (principal); F17.210 Nicotine dependence, cigarettes, uncomplicated; Z88.5 Allergy status to narcotic agent; Z88.0 Allergy status to penicillin; Z79.899 Other long term (current) drug therapy; Z98.890 Other specified postprocedural states; X58.XXXA Exposure to other specified factors, initial encounter; Y93.89 Activity, other specified; Y92.89 Other specified places as the place of occurrence of the external cause; Y99.8 Other external cause status
CPT/HCPCS: 25609; 73100; 81025; C1713; J1100; J1170; J1885; J2175; J2250; J2405; J2704; J3010; J3370; J7120; 64450

== ENCOUNTER 2020-03-20 05:45 | Emergency (ER) | payer OTHER | END 2020-03-20 06:22 | disposition left against medical advice (07) | LOC: ED 05:45 | DX: M79.10 Myalgia, unspecified site (principal); R07.89 Other chest pain; Z53.21 Procedure and treatment not carried out due to patient leaving prior to being seen by health care provider ==

== ENCOUNTER 2020-09-24 15:22 | Emergency (ER) | payer SELFPAY ==
[2020-09-24] MEDS ORDERED: ASPIRIN 325 MG TAB PO ONE (15:32)
[2020-09-24 15:33] VITALS: BP 177/111
[2020-09-24 16:20] LABS: Basophils # (Auto) 0.1 K/mm3 (0.0-0.1); Basophils % (Auto) 0.8 % (0.0-1.8); Eosinophils # (Auto) 0.2 K/mm3 (0.0-0.4); Eosinophils % (Auto) 2.1 % (0.0-4.3); Hematocrit 43.5 % (30.3-42.9); Hemoglobin 14.9 gm/dl (10.1-14.3); Lymphocytes # (Auto) 2.8 K/mm3 (1.2-5.4); Lymphocytes % (Auto) 26.4 % (13.4-35.0); Mean Corpuscular HGB Conc 34 % (30-34); Mean Corpuscular Volume 86 fl (79-97); Monocytes % (Auto) 9.8 % (0.0-7.3); Platelet Count 274 K/mm3 (140-440); Red Blood Count 5.04 M/mm3 (3.65-5.03); Red Cell Distribution Width 14.5 % (13.2-15.2)
[2020-09-24 16:34] LABS: Alanine Aminotransferase 17 units/L (7-56); Albumin 4.1 g/dL (3.9-5); Blood Urea Nitrogen 9 mg/dL (7-17); Calcium 9.7 mg/dL (8.4-10.2); Hemolysis Index 6
[2020-09-24 16:41] LABS: BUN/Creatinine Ratio 15
--- NOTE | 2020-09-25 10:49 | Electrocardiograph Report ---
[facility] Test Date: 2020-09-24 Test Time: 15:35:18 Pat Name: AVERY OSEGUERA Department: Room: Gender: F Children Teacher: PAOLA : 1980 Requested By: JIMI NOLASCO Order Number: [id number] Reading MD: Deven Rich Measurements Intervals [place] Rate: 109 P: 36 WA: 128 QRS: 25 QRSD: 84 T: 44 QT: 336 QTc: 454 Interpretive Statements Sinus tachycardia Probable left atrial enlargement Nonspecific T abnormalities, anterior leads No previous ECG available for comparison Electronically Signed On 09-25-2020 10:49:05 EDT by Deven Rich
== END 2020-09-24 21:44 | disposition left against medical advice (07) ==
LOC: ED 15:22
DX: R07.89 Other chest pain (principal); Z53.21 Procedure and treatment not carried out due to patient leaving prior to being seen by health care provider
CPT/HCPCS: 36415; 80053; 84484; 85025; 93005

== ENCOUNTER 2021-10-04 20:00 | Emergency (ER) | payer SELFPAY | END 2021-10-05 16:33 | disposition left against medical advice (07) | LOC: ED 20:00 | DX: M54.50 Low back pain, unspecified (principal); M79.606 Pain in leg, unspecified; Z53.21 Procedure and treatment not carried out due to patient leaving prior to being seen by health care provider ==